=== PATIENT | male | born 1970 | race Caucasian/White ===

== ENCOUNTER 2021-08-03 15:56 | Emergency (ER) | payer OTHER, SELFPAY ==
[2021-08-03] VITALS (8 sets, daily range): BP systolic 117–139; BP diastolic 82–93; PULSE 72–85; RESP 14–22; TEMP 36.7–37.1; O2SAT 96–98; BMI 28.0
--- NOTE | 2021-08-03 15:54 | ECG_ITS ---
APPROVED REPORT Exam: Resting ECG HR:82 bpm ECG Measurements Heart Rate 82 AXES [place] 150 P 44 QRSd 78 QRS 55 QT 370 T 51 QTc 432 Conclusion Normal sinus rhythm Possible Left atrial enlargement Borderline ECG Electronically signed by : Subhash Becerra MD 08/04/2021 17:28:52
--- NOTE | 2021-08-03 15:58 | XR_ITS ---
PROCEDURE: XR CHEST 2V CLINICAL HISTORY: CP Chest pain COMPARISON: CR CXR CHEST(2 VIEWS-NOT PORTABLE) from 08/28/2016 FINDINGS: The cardiomediastinal silhouette and pulmonary vascularity are within normal limits. Loop recorder device is present projecting over the left hilar region. No acute bony abnormalities. IMPRESSION: No acute findings. Dictated by: Donovan Carter MD 08/03/2021 16:24 Donovan Carter MD in [place] 08/03/2021 16:24
[2021-08-03 16:32] LABS: Basophils # 0.1 K/mm3 (0-0.2); Basophils % 0.8 % (0.1-2.0); Eosinophils # 0.1 K/mm3 (0.0-0.4); Eosinophils % 1.3 % (0.1-12.0); Hematocrit 53.3 % (42.0-52.0); Hemoglobin 17.8 g/dL (14.1-18.0); Lymphocytes # 2.7 K/mm3 (0.7-4.5); Lymphocytes % 31.3 % (10-50); Mean Corpuscular HGB Conc 33.4 g/dL (31.8-35.4); Mean Platelet Volume 8.8 fl (7.4-10.4); Monocytes # 0.4 K/mm3 (0.1-1.0); Monocytes % 4.1 % (1.7-9.3); Neutrophils # 5.4 K/mm3 (1.8-7.8); Neutrophils % 62.7 % (37.0-80.0); Platelet Count 199 K/mm3 (142-424); Red Blood Count 5.55 M/mm3 (4.60-6.20); Red Cell Distribution Width 13.7 % (11.5-17.5); White Blood Count 8.6 K/mm3 (4.8-10.8)
[2021-08-03 16:38] LABS: Alanine Aminotransferase 66 U/L (12-78); Albumin Level 4.4 g/dl (3.5-5.0); Albumin/Globulin Ratio 1.3 (1.1-1.8); Alkaline Phosphatase 116 U/L (38-126); Anion Gap 17.7 mEq/L (5-15); Aspartate Amino Transferase 52 U/L (17-59); Bilirubin,Total 1.1 mg/dl (0.2-1.3); Blood Urea Nitrogen 10 mg/dl (9-20); Calcium 9.3 mg/dl (8.4-10.2); Carbon Dioxide 26 mmol/L (22.0-30.0); Chloride 96 mmol/L (98-107); Creatinine Clearance Estimated 161 mL/min (50-200); Estimated Glomerular Filt Rate 141 ml/min (>60); GFR (African American) 171 ML/MIN (>60); Globulin 3.3 g/dL (1.3-3.2); Potassium 3.7 mmoL/L (3.5-5.1); Sodium 136 mmol/L (136-145); Total Protein,Serum 7.7 g/dl (6.3-8.2)
[2021-08-03 16:55] LABS: Troponin I < 0.01 ng/ml (0.00-0.034)
[2021-08-03 16:56] LABS: Glucose 400 mg/dl (74-100)
--- NOTE | 2021-08-03 17:34 | HMH.EDCP ---
ED Disposition Clinical Impression: Nonspecific chest pain Diabetes mellitus Qualifiers: Diabetes mellitus type: type 1 Diabetes mellitus complication status: without complication Qualified Code(s): E10.9 - Type 1 diabetes mellitus without complications Disposition: Home, Self-Care Condition on Discharge: Good Instructions: DI for Atypical Chest Pain Referrals: Deejay Bravo MD [Primary Care Provider] - Khadar Lincoln MD [Staff Physician] - - Critical Care Critical Care Time: No Attestation: On 08/03/21, the high probability of a clinically significant, sudden or life threatening deterioration of the following system(s) required my full and direct attention, intervention and personal management. The time I documented below is in addition to time spent performing reported procedures but includes the following listed in this critical care notation. Medical Decision Making - Medical Records Medical records reviewed: Yes: I reviewed the patient's medical records. - Dax Inquiry Pt receiving controlled substance: No Vital Signs: 08/03/21 15:57 08/03/21 16:32 08/03/21 17:00 Temperature 98.1 F Temperature Source Oral Pulse Rate 85 79 Pulse Rate [Right] 81 Respiratory Rate 18 22 22 Blood Pressure 128/86 117/82 Blood Pressure [Right Arm] 121/92 H Blood Pressure Mean 91 Blood Pressure Mean [Right Arm] 101 02 Sat by Pulse Oximetry 98 98 96 Oxygen Delivery Method Room Air 08/03/21 17:30 08/03/21 18:00 08/03/21 18:30 Temperature Temperature Source Pulse Rate 79 Pulse Rate [Right] Respiratory Rate 20 Blood Pressure 128/85 121/93 H 139/86 Blood Pressure [Right Arm] Blood Pressure Mean 97 104 100 Blood Pressure Mean [Right Arm] 02 Sat by Pulse Oximetry 96 Oxygen Delivery Method 08/03/21 19:00 Temperature Temperature Source Pulse Rate 78 Pulse Rate [Right] Respiratory Rate 19 Blood Pressure 139/86 Blood Pressure [Right Arm] Blood Pressure Mean Blood Pressure Mean [Right Arm] 02 Sat by Pulse Oximetry Oxygen Delivery Method - Lab Data Lab Results 08/03/21 10:58: WBC 8.6, RBC 5.55, Hgb 17.8, Hct 53.3 H, MCV 96.0 H, MCH 32.0 H, MCHC 33.4, RDW 13.7, Plt Count 199, MPV 8.8, Neut % (Auto) 62.7, Lymph % (Auto) 31.3, Tripp % (Auto) 4.1, Eos % (Auto) 1.3, Baso % (Auto) 0.8, Neut # (Auto) 5.4, Lymph # (Auto) 2.7, Tripp # (Auto) 0.4, Eos # (Auto) 0.1, Baso # (Auto) 0.1 08/03/21 10:58: Sodium 136, Potassium 3.7, Chloride 96 L, Carbon Dioxide 26, Anion Gap 17.7 H, BUN 10, Creatinine 0.60 L, Estimated Creat Clear 161, Estimated GFR 141, Est GFR ( Amer) 171, Glucose 400 H, Calcium 9.3, Total Bilirubin 1.1, AST 52, ALT 66, Alkaline Phosphatase 116, Troponin I < 0.01, Total Protein 7.7, Albumin 4.4, Globulin 3.3 H, Albumin/Globulin Ratio 1.3 08/03/21 19:03: Troponin I < 0.01 Result diagrams: 08/03/21 10:58 08/03/21 10:58 Orders (Tests/Meds): ED MEDICATIONS Generic Name Dose Route Start Last Admin Trade Name Freq PRN Reason Stop Dose Admin Sodium Chloride 1,000 mls @ 999 mls/hr 08/03/21 17:15 08/03/21 17:22 Sod Chlor 0.9% 1000ml Bag IV 08/03/21 18:15 999 mls/hr .Q1H1M KANDACE Administration Discontinued Medications Generic Name Dose Route Start Last Admin Trade Name Freq PRN Reason Stop Dose Admin Aspirin 325 mg 08/03/21 19:15 Aspirin 325mg Tablet PO 08/03/21 19:16 ONCE ONE Insulin Human Regular 8 unit 08/03/21 19:17 Insulin Human Regular 100 Units/Ml 10ml Vial IVP 08/03/21 19:18 ONCE ONE ORDERS Category Date Time Status Troponin I Q3H Lab 08/03/21 22:00 Ordered - ECG Data Tracing #1 I reviewed this ECG and interpreted as documented below: Normal ventricular rate 82 bpm, SD interval 150 ms, normal QTC. Nonspecific changes. ECG initial impression date: 08/03/21 ECG initial impression time: 15:54 - Reevaluation(s) Time: 19:32 Reevaluation #1: On reevaluation, callum
[2021-08-03 19:28] LABS: Troponin I < 0.01 ng/ml (0.00-0.034)
== END 2021-08-03 20:00 | disposition home or self-care (01) ==
PROVIDERS: Emergency Provider Emergency Medicine; PCP Family Medicine
DX: R07.89 Other chest pain (principal); E11.65 Type 2 diabetes mellitus with hyperglycemia; E78.5 Hyperlipidemia, unspecified; F33.1 Major depressive disorder, recurrent, moderate; F17.210 Nicotine dependence, cigarettes, uncomplicated; Z79.899 Other long term (current) drug therapy
CPT/HCPCS: 36415; 71046; 80053; 84484; 85025; 93005; 99283

== ENCOUNTER → 2023-10-10 15:16 | Outpatient (CLI) | payer BC, SELFPAY ==
--- NOTE | 2023-10-10 15:27 | XR_ITS ---
FINAL REPORT TECHNIQUE: Chest PA & Lateral CLINICAL HISTORY: COUGH, throwing up blood this morning, soa, smoker, has had heart monitor for years COMPARISON: None FINDINGS: 2 views of the chest were performed. The heart size is normal. A loop recording device is noted overlying the left hilum. The mediastinum is within normal limits. There is no acute cardiopulmonary process. There are no pleural effusions. There is no pneumothorax. The bony thorax appears intact. IMPRESSION: No acute cardiopulmonary process. Reviewed, Interpreted and Dictated by Sanjay Madden MD Transcribed by Aura Qureshi Authenticated and . [facility]
== END ==
PROVIDERS: PCP Physician Assistant; Visit Provider Physician Assistant
DX: R04.2 Hemoptysis (principal); J40 Bronchitis, not specified as acute or chronic; Z72.0 Tobacco use
CPT/HCPCS: 71046

== ENCOUNTER 2024-04-02 13:58 | Outpatient (CLI) | payer BC, SELFPAY ==
--- NOTE | 2024-04-02 14:03 | CT_ITS ---
FINAL REPORT TECHNIQUE: Thin section axial CT images with coronal and sagittal reformats were performed through the neck. This study was performed with techniques to keep radiation doses as low as reasonably achievable (ALARA). Individualized dose reduction techniques using automated exposure control or adjustment of mA and/or kV according to the patient''s size were employed. CLINICAL HISTORY: CERVICAL LYMPHAEDNOPATHY COMPARISON: None FINDINGS: There are no significant lymph nodes seen. There are lobular nodules in both parotid glands measuring up to 1.4 cm on the right and 1.1 cm on the left. These appear to be solid and slightly increased in attenuation relative to the normal parotid gland. Salivary glands are normal. Larynx is unremarkable. Thyroid gland is unremarkable. 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 Correlate with ultrasound recommended. Reviewed, Interpreted and Dictated by Sanjay Madden MD Transcribed by Neena Sharp Authenticated and [facility]
== END 2024-04-02 23:59 | disposition home or self-care (01) ==
LOC: RAD 13:59
PROVIDERS: PCP Physician Assistant; Visit Provider Physician Assistant
DX: R59.0 Localized enlarged lymph nodes (principal)
CPT/HCPCS: 70490

== ENCOUNTER 2024-04-14 09:36 | Outpatient (CLI) | payer BC, SELFPAY ==
--- NOTE | 2024-04-14 09:40 | US_ITS ---
FINAL REPORT TECHNIQUE: Ultrasound imaging of the parotid glands was obtained. CLINICAL HISTORY: PAROTID NODULE FINDINGS: There is a 2.2 cm right parotid mass which is well-circumscribed. Multiple left parotid nodules are seen measuring up to 1.2 cm. Differential diagnosis includes bilateral parotid adenopathy, Warthin's tumor's or pleomorphic adenomas. IMPRESSION: Bilateral parotid masses with differential diagnosis of bilateral parotid adenopathy, Warthin's tumor or pleomorphic adenomas. Reviewed, Interpreted and Dictated by Johnny Ireland III, MD Transcribed by Stefani Bullock Authenticated and [facility]
== END 2024-04-14 23:59 | disposition home or self-care (01) ==
LOC: RAD 09:37
PROVIDERS: PCP Physician Assistant; Visit Provider Physician Assistant
DX: K11.8 Other diseases of salivary glands (principal); Z72.0 Tobacco use
CPT/HCPCS: 76536

== ENCOUNTER 2024-05-21 07:30 | Outpatient (CLI) | payer BC, SELFPAY ==
--- NOTE | 2024-05-21 07:31 | US_ITS ---
FINAL REPORT CLINICAL HISTORY: rt parotid mass -- rt parotid FNA -- nichol EUBANKS FINDINGS: ULTRASOUND GUIDED RIGHT PAROTID MASS BIOPSY HISTORY: Right parotid mass. TECHNIQUE: Informed consent was obtained from the patient. Timeout procedure was performed prior to beginning. Limited sonographic evaluation of right parotid gland was performed to localize the lesion of interest. The neck was prepped in a routine sterile fashion and locally anesthetized with 1% lidocaine. FNA was performed with 25-gauge needle under direct sonographic visualization. 4 passes were made. Cytology is pending. Half of the samples were placed in RPMI. Procedure was well tolerated. CONCLUSION: 1. Technically successful right parotid fine needle aspiration. Reviewed, Interpreted and Dictated by Johnny Ireland III, MD Transcribed by Conchita Moon PA-C Authenticated and [facility]
== END 2024-05-21 23:59 | disposition home or self-care (01) ==
LOC: RAD 07:31
PROVIDERS: PCP Physician Assistant; Visit Provider Otolaryngology
DX: K11.8 Other diseases of salivary glands (principal)
CPT/HCPCS: 76942

== ENCOUNTER 2024-07-18 06:53 | Outpatient (CLI) | payer BC, SELFPAY ==
--- OUTSIDE RECORDS SUMMARY | 2024-07-18 06:56 | XMS_ITS ---
Author Organization [facility] Address [address] [facility] [address] [place] [id number] Care Team Providers Care Revenue Stamp Cutter Name Role Phone Tasneem Bravo Primary Care Provider Chaparrita Gautam Unavailable [phone] RESULTS Component Value Reference Range Notes CBC Venipuncture (in house) Reviewed date:06/18/2024 11:39:27 PM Interpretation: Performing Lab: Notes/Report: wbc 8.5 3.5 - 10 lymph 23.5% 15 - 50 mid 6.9% 2 - 15 gran 69.6% 35 - 80 rbc 5.50 3.5 - 5.5 hgb 17.2 11.5 - 16.5 hct 51.7 35 - 55 mcv 94.0 75 - 100 mch 31.3 25 - 35 mchc 33.3 31 - 38 platlet 168 100 - 400 Glycohemoglobin A1c (in hous e) Reviewed date:06/20/2024 12:18:48 PM Interpretation:9.5 Performing Lab: Notes/Report: 9.5 glycohemoglobin 9.5% 5 - 6.5 % P-Comprehensive Metabolic Pa will (CMP) Reviewed date:06/20/2024 12:18:48 PM Interpretation:co2-20, gluc 218, Cr 0.66 Performing Lab: Notes/Report: Test performed by [facility] [address] [place] [address] , [address], [place] [address] Farhad Alfred MD, Time Lock Expert CLIA: [id number] Sodium 140 135-145 mmol/L Potassium 4.4 3.5-5.3 mmol/L Chloride 105 97-108 mmol/L CO2 20 22-32 mmol/L Glucose 218 65-99 mg/dL BUN 14 6-20 mg/dL Creatinine 0.66 0.70-1.30 mg/dL Calcium 8.8 8.6-10.4 mg/dL eGFR by Creatinine 111 >59 mL/min/1.73m2 Protein 7.1 6.0-8.3 g/dL Albumin 4.6 3.5-5.3 g/dL Alkaline Phosphatase 122 40-129 IU/L ALT (SGPT) 20 <5-55 IU/L AST (SGOT) 16 <5-46 IU/L Bilirubin, Total 0.4 <0.2-1.2 mg/dL A/G Ratio 1.8 1.1-2.5 mg/dL P-Lipid Panel Reviewed date:06/20/2024 12:18:48 PM Interpretation:hdl 32 Performing Lab: Notes/Report: Test performed by [facility], [address] , [address] , [place] [address] Farhad Alfred MD, Time Lock Expert CLIA: [id number] Cholesterol 109 <200 mg/dL Triglycerides 89 <150 mg/dL HDL Cholesterol 32 >39 mg/dL Cholesterol / HDL Ratio 3.41 0.00-4.99 Ratio Non-HDL Cholesterol 77 <130 mg/dL LDL Cholesterol (Calculation) 59 <130 mg/dL LDL Cholesterol Levels* Less than 100 mg/dL Optimal 100 to 129 mg/dL Near Optimal/ Above Optimal 130 to 159 mg/dL Borderline High 160 to 189 mg/dL High 190 mg/dL and above Very High * Categories as recommended by the 2004 ATPIII guidelines LDL/HDL Ratio 1.9 <3.3 Ratio LDL Cholesterol Patient History Test Date: 06/14/2024 LDL Results: 59 Units: mg/dL % Change: - P-PSA Reviewed date:06/20/2024 12:18:48 PM Interpretation:Normal Performing Lab: Notes/Report: Test performed by [facility] [address] [place] [address] , [place] [address] Farhad Alfred MD, Time Lock Expert CLIA: [id number] PSA 0.45 <4.00 ng/mL Please note this is an ultrasensitive PSA assay with a lower limit of detection of 0.014 ng/mL. This test is performed by the [employer] ECLIA methodology. Values obtained with different assay methods or kits cannot be directly compared. P-TSH reflex to FT4 Reviewed date:06/20/2024 12:18:48 PM Interpretation:Normal Performing Lab: Notes/Report: Test performed by [facility] [address] [place] [address] , [place] , [place] [address] Farhad Alfred MD, Time Lock Expert CLIA: [id number] TSH reflex to FT4 0.50 0.43-5.25 mU/L REASON FOR VISIT blood work MEDICATIONS Medication SIG (Take, Route, Frequency, Duration) Notes Start Date End Date Status rOPINIRole HCl 1 MG 1.5 tab Orally Once a day for 90 days 06/05/2024 Active Rosuvastatin Calcium 10 MG 1 tablet Oral ly Once a day for 90 days Active Trelegy Ellipta 100-62.5-25 MCG/ACT 1 puff Inhalation Once a day 10/10/2023 Active Venlafaxine HCl 75 MG 1 tab(s) orally tw ice a day for 90 days Active Wellbutrin XL 150 MG 1 tab(s) orally carline ry 24 hours for 90 days Active Abilify 10 MG 1 tab(s) orally once a day for 90 days Active metFORMIN HCl 1000 MG 1 tab(s) orally tw ice a day for 90 days Active PROBLEMS Problem Type ICD Code Onset Dates Problem Status W/U Status Risk SNOMED Code Notes Problem Hyperlipidemia, unspecified (E78.5) Active confirmed Hyperlipidemia ([id number]) Encounters Encounter Location Date Provider Diagnosis [facility] [address] [facility] [address], [place] [id number] 06/14/2024 Chaparrita Gautam Hyperlipidemia, unspecified E78.5 ; Type 2 diabetes mellitus without complications E11.9 ; Other fatigue R53.83 ; Inflammatory disease of prostate, 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
--- OUTSIDE RECORDS SUMMARY | 2024-07-18 06:56 | XMS_ITS ---
Author Organization [facility] Address [address] [facility] [address] [place] [id number] Care Team Providers Care Community Service Organization Director Name Role Phone Tasneem Bravo Primary Care Provider Chaparrita Gautam [phone] REASON FOR VISIT Test results MEDICATIONS Medication SIG (Take, Route, Fr equency, Duration) Notes Start Date End Date Status Jardiance 10 MG 1 tablet Orally Once a day in the am 06/20/2024 Active Encounters Encounter Location Date Provider Diagnosis [facility] [address] [facility] [address] [place] [id number] 06/20/2024 Chaparrita Gautam PLAN OF TREATMENT Medication Medication Name Sig Start Date Stop Date Notes Jardiance 10 MG 1 tablet Orally Once a day in the am 06/20
--- OUTSIDE RECORDS SUMMARY | 2024-07-18 06:56 | XMS_ITS ---
[facility] [address] [place] [id number] Care Team Providers Care Lane Marker Installer Name Role Phone Tasneem Bravo Primary Care Provider Chaparrita Gautam Unavailable [phone] ALLERGIES Allergen (clinical drug ingredient) Drug/Non Drug Allergy documented on EMR Reaction Allergy Type Onset Date Status Levaquin itchy rash Drug Allergy Active REASON FOR VISIT medical evaluation MEDICATIONS Medication SIG (Take, Route, Frequency, Duration) Notes Start Date End Date Status Venlafaxine HCl 75 MG 1 tab(s) orally tw ice a day for 90 days Active Trelegy Ellipta 100-62.5-25 MCG/ACT 1 puff Inhalation Once a day 10/10/2023 Active Jardiance 10 MG 1 tablet Orally Once a day in the am 06/20/2024 Active Rosuvastatin Calcium 10 MG 1 tablet Oral ly Once a day for 90 days Active rOPINIRole HCl 1 MG 1.5 tab Orally Once a day for 90 days 06/05/2024 Active metFORMIN HCl 1000 MG 1 tab(s) orally tw ice a day for 90 days Active Abilify 10 MG 1 tab(s) orally once a day for 90 days Active Wellbutrin XL 150 MG 1 tab(s) orally carline ry 24 hours for 90 days Active VITAL SIGNS Weight 164.2 lbs 07/16/2024 Blood pressure systolic 102 mm Hg 07/16/20 24 Blood pressure diastolic 76 mm Hg 024 Heart Rate 86 /min 07/16/2024 Height 66 in 07/16/2024 BMI 26.50 kg/m2 07/16/2024 Encounters Encounter Location Date Provider Diagnosis [facility] [address] [place] [id number] 07/16/2024 Chaparrita Gautam Preop general physic al exam Z01.818 and Mass of parotid gland K11.8 ASSESSMENTS Encounter Date Diagnosis Assessment Notes Treatment Notes Treatment Clinical Notes 07/16/2024 Preop general physical exam (ICD-10 - Z01.818) 07/16/2024 Mass of parotid gland (ICD-10 - K11.8) PLAN OF TREATMENT Pending Test Test Name Order Date CXR 07/16/2024 EKG with rhythm strip 07/16/2024 H-CBC 07/16/2024 H-CMP 07/16/2024 Progress Notes * Examination Category Sub-Category Detail Notes General Examination HEENT: sclera and c onjunctiva clear, PERRLA, TM's normal, translucent, right parotid gland with a palpable mass Heart: RSR Lungs: clear to auscultatio n Abdomen: bowel sounds present , soft and nontender, no organomegaly or masses, no guarding or rigidity Extremities: no leg edema General Appearance: NAD Skin: normal, no rash Neurologic Exam: Intact, gait normal Neck: supple, no lymphaden opathy Oral cavity: no lesions, mucosa m oist and WNL, no erythema Peripheral pulses: normal (2+) bilatera lly Chest: normal shape and exp ansion History and Physical Notes * HPI (History of Present Illness) Category Sub-Category Detail Notes Adult Pre-Op physical Procedure: tumor ayaan tra from right side of neck Date of Procedure: 08/06/24 Sleep Apnea history no CPAP use no Name of Surgeon: unknown Family history of anesthesia intolerance no Has had anesthesia before no Pain Assessment acute pain: N Implantable device no Anticoagulant no ASA/Ibuprofen/NSAIDS no
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
--- NOTE | 2024-07-18 07:16 | ECG_ITS ---
APPROVED REPORT Exam: Resting ECG HR:81 bpm ECG Measurements Heart Rate 81 AXES WV 131 P 29 QRSd 86 QRS 65 QT 349 T 63 QTc 387 Conclusion SINUS RHYTHM NORMAL ECG UNCONFIRMED REPORT Electronically signed by : Subhash Becerra MD 07/18/2024 08:46:40
[2024-07-18 07:40] LABS: Basophils # 0.1 K/mm3 (0-0.2); Basophils % 0.8 % (0.1-2.0); Eosinophils # 0.1 K/mm3 (0.0-0.4); Eosinophils % 1.3 % (0.1-12.0); Hematocrit 57.2 % (42.0-52.0); Lymphocytes # 1.6 K/mm3 (0.7-4.5); Lymphocytes % 20.9 % (10-50); Mean Corpuscular HGB Conc 31.8 g/dL (31.8-35.4); Mean Corpuscular Hemoglobin 32.5 pg (27.0-31.2); Mean Corpuscular Volume 102.2 fl (80-94); Mean Platelet Volume 7.5 fl (7.4-10.4); Monocytes # 0.4 K/mm3 (0.1-1.0); Monocytes % 4.5 % (1.7-9.3); Neutrophils # 5.7 K/mm3 (1.8-7.8); Neutrophils % 72.5 % (37.0-80.0); Platelet Count 219 K/mm3 (142-424); Red Cell Distribution Width 14.7 % (11.5-17.5); White Blood Count 7.9 K/mm3 (4.8-10.8)
[2024-07-18 08:13] LABS: Hemoglobin 18.2 g/dL (14.1-18.0)
[2024-07-18 08:39] LABS: Alanine Aminotransferase 28 U/L (12-78); Albumin Level 4.4 g/dl (3.5-5.0); Albumin/Globulin Ratio 1.5 (1.1-1.8); Alkaline Phosphatase 95 U/L (38-126); Anion Gap 10.8 mEq/L (5-15); Aspartate Amino Transferase 29 U/L (17-59); Bilirubin,Total 0.8 mg/dl (0.2-1.3); Blood Urea Nitrogen 19 mg/dl (9-20); Calcium 9.3 mg/dl (8.4-10.2); Carbon Dioxide 26 mmol/L (22.0-30.0); Chloride 105 mmol/L (98-107); Estimated Glomerular Filt Rate 140 ml/min (>60); GFR (African American) 169 ML/MIN (>60); Glucose 163 mg/dl (74-100); Potassium 4.8 mmoL/L (3.5-5.1); Sodium 137 mmol/L (136-145); Total Protein,Serum 7.4 g/dl (6.3-8.2)
== END 2024-07-18 23:59 | disposition home or self-care (01) ==
LOC: LAB 06:54
PROVIDERS: PCP Physician Assistant; Visit Provider Otolaryngology
DX: K11.8 Other diseases of salivary glands (principal); Z72.0 Tobacco use
CPT/HCPCS: 36415; 80053; 85025; 93005

== ENCOUNTER 2024-07-31 13:15 | Outpatient (CLI) | payer BC, SELFPAY ==
--- NOTE | 2024-07-31 | XR_ITS ---
FINAL REPORT TECHNIQUE: Chest PA & Lateral CLINICAL HISTORY: TOBACCO USE COMPARISON: 10/10/2023 FINDINGS: 2 views of the chest were performed. A loop recording device is noted in the mid thorax. The heart size is normal. The mediastinum is within normal limits. There is no acute cardiopulmonary process. There are no pleural effusions. There is no pneumothorax. The bony thorax appears intact. IMPRESSION: No acute cardiopulmonary process. Reviewed, Interpreted and Dictated by Sanjay Madden MD Transcribed by Rachell Fernandez Authenticated and [facility]
[2024-07-31 14:26] LABS: Basophils # 0.1 K/mm3 (0-0.2); Basophils % 0.5 % (0.1-2.0); Eosinophils # 0.1 K/mm3 (0.0-0.4); Eosinophils % 1.1 % (0.1-12.0); Hematocrit 53.2 % (42.0-52.0); Hemoglobin 17.1 g/dL (14.1-18.0); Lymphocytes # 2.1 K/mm3 (0.7-4.5); Lymphocytes % 20.5 % (10-50); Mean Corpuscular HGB Conc 32.2 g/dL (31.8-35.4); Mean Corpuscular Hemoglobin 32.9 pg (27.0-31.2); Mean Corpuscular Volume 102.2 fl (80-94); Mean Platelet Volume 7.9 fl (7.4-10.4); Monocytes # 0.4 K/mm3 (0.1-1.0); Monocytes % 3.9 % (1.7-9.3); Neutrophils # 7.8 K/mm3 (1.8-7.8); Platelet Count 187 K/mm3 (142-424); Red Cell Distribution Width 14.7 % (11.5-17.5); White Blood Count 10.5 K/mm3 (4.8-10.8)
== END 2024-07-31 23:59 | disposition home or self-care (01) ==
LOC: RAD 13:17
PROVIDERS: PCP Physician Assistant; Visit Provider Physician Assistant
DX: Z01.818 Encounter for other preprocedural examination (principal)
CPT/HCPCS: 36415; 71046; 85025

== ENCOUNTER 2024-08-06 06:06 | Day surgery (SDC) | payer BC, SELFPAY ==
[2024-08-04 16:55] VITALS: BMI 27.3
[2024-08-06] VITALS (10 sets, daily range): BP systolic 127–139; BP diastolic 70–88; PULSE 86–114; RESP 16–20; TEMP 36.5–37.2; O2SAT 91–96
[2024-08-06] MEDS: LACTATED RINGERS 1000ML 1,000 ML 25 ML IV (06:37)
[2024-08-06 07:04] LABS: POC Glucose,Bedside 166 (70-110)
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
[2024-08-06] MEDS: LIDOCAINE 1% W/EPI 1:100,000 20ML VIAL 20 ML (09:15)
[2024-08-06] MEDS: CEFAZOLIN SODIUM 2 GM in 0.9 % SODIUM CHLORIDE 100 ML IV (09:25)
[2024-08-06] MEDS: BACITRACIN ZINC OINT 30GM TUBE 28 GM TP (09:33)
--- NOTE | 2024-08-06 12:19 | EXP.ANES.I ---
[facility] Anesthesia Record Part I Anesthesia Record I Intake, IV Amount: 1,700 Hydration: Adequate Estimated blood loss (mL): 5 Urine output (mL): 0 Blood Pressure: 136/71 SaO2: 93 Pulse Rate: 114 Airway Patency: Patent Respiratory Rate: 20 Temperature: 98.9 F Patient is:: Drowsy Stable to PACU at:: 12:18
--- NOTE | 2024-08-06 12:24 | EXP.OP.NOTE ---
Date of procedure: 08/06/24 Pre-op Diagnosis:: Right parotid gland mass Post-op Diagnosis:: Right parotid gland mass Procedure performed:: Right superficial parotidectomy with facial nerve dissection and nerve integrity monitoring of the facial nerve, cervical lymph node biopsy Surgeon:: Vladimir Garcia MD PROFESSOR OF POLITICAL SCIENCE:: Dangelo Greenfield Anesthesia: GETA Estimated blood loss (mL): 50 Operative findings:: 2 cm mass in the tail region of the right parotid gland with superficial adjacent lymph node on the surface of the parotid gland and then another adjacent lymph node in the postauricular area over the mastoid cortex. The purulent material from the superficial lymph node was cultured Operative note:: The patient was brought to the operating room and after adequate general anesthesia the right neck was prepped and draped in the usual sterile fashion and then 1% lidocaine with epinephrine used to locally infiltrate a skin crease in front of the tragus and then the incision was extended in a curvilinear fashion into a skin fold on the neck and then nerve integrity monitoring electrodes were placed to monitor the 4 main branches of the facial nerve and the nerve was monitored throughout the case. An incision was then made and carried down to the underlying parotid fascia and then a skin flap elevated superiorly exposing the entire parotid gland. The body the part parotid was then from the tragus and pretracheal fascia and then dissection performed along the anterior superior border the sternocleidomastoid muscle the tail of the parotid from the muscle tissue. At this point the external jugular vein and greater auricular nerve were divided and ligated. Further dissection was performed the parotid gland from the deeper fibers of the sternocleidomastoid muscle and then underlying digastric muscle and tendon. Dissection was then performed along the tympanomastoid suture line until the facial nerve was identified in its usual location and the identity was concern confirmed with nerve stimulator. Then dissection was performed inferiorly tracing the inferior branches of the facial nerve working from proximal to distal and dissecting the superficial lobe of the parotid gland from its lateral surface. There was an overlying presumed lymph node on the surface of the parotid gland that was purulent and the purulent material was cultured but the lymph node was included in the surgical specimen. There was also palpable lymph node over the mastoid cortex in the postauricular area and this was separately excised using a harmonic scalpel. The tail of the parotid gland was then divided from the body of the parotid using a harmonic scalpel after the facial nerve branches were identified and preserved. The specimen was then sent for permanent section analysis and the wound was irrigated with saline. A 7 mm Bayron-Weeks drain was then placed to the depth of the wound and secured the skin using 3-0 silk and then the wound was closed in layers using 4-0 Vicryl to reapproximate the body the parotid gland gland to the pretracheal fascia and then the subcutaneous layer was closed with 4-0 Vicryl and the skin edges closed with 5-0 nylon. A sterile dressing was then placed and the procedure concluded. All counts correct blood loss minimal facial nerve function was entirely intact and patient was sent to recovery in stable condition Condition: stable Disposition: PACU Complications:: No complication
[2024-08-06 12:35] LABS: POC Glucose,Bedside 177 (70-110)
--- NOTE | 2024-08-06 13:03 | SUR.PHASEI ---
Pt using incentive spirometry in the Pacu period.
--- NOTE | 2024-08-08 08:43 | EXP.ANES.II ---
[facility] Anesthesia Record Part II Anesthesia Record Part II Discharge Time: 12:58 Destination: Surgical Day Care (OP Surgery) PACU nurse assessment reviewed?: Yes Patient Condition:: Good Anesthesia Complications:: None Swallowing reflex intact?: Yes Airway Patency: Patent Cyanosis?: No Blood Pressure: 129/88 SaO2: 93 Respiratory Rate: 16 Pulse Rate: 100 Temperature: 98.9 F Mental Status: Alert & Oriented Pain level:: 0 Nausea and/or vomitting:: None Intake, IV Amount: 0 Hydration: Adequate
[2024-08-08 08:44] VITALS: BP 129/88; PULSE 100; RESP 16; TEMP 37.2; O2SAT 93
== END 2024-08-06 13:30 | disposition home or self-care (01) ==
PROVIDERS: PCP Physician Assistant; Visit Provider Otolaryngology
PROC: (CPT 42410; principal; 2024-08-06 08:15)
DX: D11.0 Benign neoplasm of parotid gland (principal)
CPT/HCPCS: 42415; 38500; 82962; 87070; 87075; 87205; 96374; J0330; J1100; J2250; J2405; J3010; J7120

== ENCOUNTER 2024-10-16 16:27 | Emergency (ER) | payer BC, SELFPAY ==
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
[2024-10-16 16:39] VITALS: BP 150/92; PULSE 94; RESP 16; TEMP 36.8; O2SAT 96; BMI 27.6
[2024-10-16 17:45] VITALS: BP 174/100; PULSE 89; RESP 18; TEMP 36.8; O2SAT 95
== END 2024-10-16 17:45 | disposition home or self-care (01) ==
PROVIDERS: Emergency Provider Student in an Organized Health Care Education/Training Program; PCP Physician Assistant
DX: T81.31XA Disruption of external operation (surgical) wound, not elsewhere classified, initial encounter (principal)
CPT/HCPCS: 99281

== ENCOUNTER 2024-12-29 16:16 | Outpatient (CLI) | payer BC, SELFPAY ==
[2024-12-29 20:54] LABS: Coronavirus 19, PCR Not Detected (NotDetected); Influenza A, PCR Not Detected (NotDetected); Influenza B, PCR Not Detected (NotDetected)
== END 2024-12-29 23:59 | disposition home or self-care (01) ==
LOC: LAB.DROPOF 12-31 10:13
PROVIDERS: PCP Student in an Organized Health Care Education/Training Program; Visit Provider Student in an Organized Health Care Education/Training Program
DX: R09.81 Nasal congestion (principal); R11.10 Vomiting, unspecified; J40 Bronchitis, not specified as acute or chronic; Z72.0 Tobacco use
CPT/HCPCS: 87636

== ENCOUNTER 2025-08-19 15:18 | Outpatient (CLI) | payer BC, SELFPAY ==
--- NOTE | 2025-08-19 15:20 | CT_ITS ---
FINAL REPORT TECHNIQUE: Thin section axial images were obtained through the lungs using a low-dose technique per lung cancer screening protocol. Reconstruction images were obtained using the axial data. Exam was performed using dose reduction technique. CLINICAL HISTORY: SCREENING former smoker, quit 3 months ago 3 ppd/25 yrs COMPARISON: None FINDINGS: CTDLvol: 2.90 DLP: 98.99 Former smoker 75 pack year history Lungs: No acute pulmonary abnormality. There is a 3 mm left upper lobe nodule on series 4, image 27, 4 mm left upper lobe nodule on image 39, and a 3 mm left lower lobe nodule on image 67. Early emphysematous changes. Lymph nodes: No thoracic lymphadenopathy. Mediastinum: Heart size is normal. Wall thickening of the mid to distal esophagus, esophagitis not excluded. Pleura/pericardium: No pleural or pericardial effusion. Other: No acute abnormality in the upper abdomen. IMPRESSION: Several 4 mm or less left lung nodules. Modifier S: Mid to distal esophageal wall thickening may represent esophagitis. Lung RADS: 2S Recommendation: 12 month follow-up low-dose chest CT Reviewed, Interpreted and Dictated by Gaviota Ricketts MD Transcribed by Neena Sharp Authenticated and [facility]
== END 2025-08-19 23:59 | disposition home or self-care (01) ==
LOC: RAD 15:18
PROVIDERS: PCP Physician Assistant; Visit Provider Family Medicine
DX: Z12.2 Encounter for screening for malignant neoplasm of respiratory organs (principal); Z87.891 Personal history of nicotine dependence; R91.8 Other nonspecific abnormal finding of lung field; K22.9 Disease of esophagus, unspecified
CPT/HCPCS: 71271